=== PATIENT | male | born 1980 | race Caucasian/White ===

== ENCOUNTER 2017-06-11 08:10 | Emergency (ER) | payer BC, MEDICAID ==
[~2017-06-11] VITALS: Ht 170.2 cm; Wt 82.0 kg
[~2017-06-11 08:10] MED LIST: AMOX500C2 PO; CEPH500C PO; IBUP800T25 PO
[2017-06-11 08:11] VITALS: Ht 170.2 cm; Wt 82.0 kg
[2017-06-11] MEDS ORDERED: KETOROLAC 30 MG INJ IV STA (08:30)
[2017-06-11] MEDS ORDERED: ONDANSETRON 4 MG INJ IV STA (08:30)
[2017-06-11 08:56] LABS: BASOPHILS % 0.2 % (0.0-2.0); EOSINOPHILS # 0.1 10^3/ul (0.0-0.5); EOSINOPHILS % 0.4 % (0.0-7.0); HEMATOCRIT 46.4 % (42.0-52.0); HEMOGLOBIN 15.5 g/dl (14.0-18.0); LYMPHOCYTES # 2.4 10^3/ul (0.8-2.9); LYMPHOCYTES % 21.2 % (15.0-51.0); MEAN CORPUSCULAR HEMOGLOBIN 28.8 pg (29.0-33.0); MEAN CORPUSCULAR HGB CONC 33.4 g/dl (32.0-37.0); MEAN CORPUSCULAR VOLUME 86.1 fl (82.0-101.0); MONOCYTE # 0.8 10^3/ul (0.3-0.9); MONOCYTES % 6.9 % (0.0-11.0); NEUTROPHIL # 8.1 10^3/ul (1.6-7.5); NEUTROPHILS % 70.9 % (39.0-77.0); PLATELET COUNT 291 10^3/UL (140-415); RED BLOOD COUNT 5.39 10^6/ul (4.70-6.10); RED CELL DISTRIBUTION WIDTH 12.7 % (11.5-14.5); WHITE BLOOD COUNT 11.4 10^3/ul (4.8-10.8)
[2017-06-11 09:10] LABS: ADD UMIC NO; UR ASCORBIC ACID NEGATIVE (NEGATIVE); UR BILIRUBIN (Dip) NEGATIVE (NEGATIVE); UR BLOOD (Dip) NEGATIVE (NEGATIVE); UR CLARITY CLEAR (CLEAR); UR COLOR YELLOW (YELLOW); UR GLUCOSE (Dip) NEGATIVE (NEGATIVE); UR KETONES (Dip) NEGATIVE (NEGATIVE); UR LEUKOCYTE ESTERASE (Dip) NEGATIVE Leu/ul (NEGATIVE); UR NITRITE (Dip) NEGATIVE (NEGATIVE); UR SPECIFIC GRAVITY (Dip) 1.018 (1.003-1.030); UR TOTAL PROTEIN (Dip) NEGATIVE (NEGATIVE); UR UROBILINOGEN (Dip) NEGATIVE (NEGATIVE)
[2017-06-11 09:18] LABS: ALBUMIN 4.6 g/dl (3.3-4.9); ALBUMIN/GLOBULIN RATIO 1.15; BILIRUBIN,INDIRECT 0.9 mg/dl (0-1.1); BILIRUBIN,TOTAL 0.9 mg/dl (0.2-1.3); CALCIUM 9.7 mg/dl (8.4-10.2); CREATININE 0.89 mg/dl (0.61-1.24); POTASSIUM 4.2 mmol/L (3.5-5.1); TOTAL PROTEIN 8.6 g/dl (6.1-8.1)
--- NOTE | 2017-06-11 09:26 | RADRPT ---
PROCEDURE: Chest x-ray CLINICAL INDICATION: Flank pain TECHNIQUE: Chest single view COMPARISON: None FINDINGS: The heart is normal in size. The pulmonary vessels are normal in caliber. The lungs are clear. Th e costophrenic angles are sharp. The visualized bony thorax is unremarkable. IMPRESSION: No acute cardiopulmonary disease. RPTAT: HH .Serafin Dang MD, Date Time Electronically viewed and signed by .Serafin Dang MD, MD on 06/11/2017 09:26 .W/
--- NOTE | 2017-06-11 09:46 | RADRPT ---
PROCEDURE: CT abdomen and pelvis without contrast. CLINICAL INDICATION: Left flank pain TECHNIQUE: CT scan of the abdomen and pelvis without contrast was performed on a multislice CT [facility] utilizing axial imaging from the lung bases through the pubis symphysis. The patient was scann ed without intravenous contrast. Sagittal and coronal reformatted images were made. The CTDIvol is 11.63 mGy and the DLP is 748.91 mGycm. DICOM images are available. One of the following 3 dose reduction techniques were used during this CT examination: 1) Automated exposure control 2) Adjustment of the mA +/- kV according to patient size or 3) Use of iterative reconstruction technique COMPARISON: None available FINDINGS: The lung bases are free of infiltrates, masses or effusions. A peripheral left lower lobe 3 mm nodul e is present. The visualized heart size is normal. No pericardial effusion is present. The visualized liver, spleen, pancreas, and gallbladder are normal. No evidence for intrahepatic or extrahepatic biliary ductal dilatation is noted. The bilateral adrenal glands are normal. The bilateral kidneys demonstrate no evidence for hydrouret eronephrosis. No evidence for nephroureterolithiasis is present. The ureters are symmetric bilateral ly. The visualized aorta is normal. The visualized bowel is nonobstructive. No evidence for diverticulosis or diverticulitis is present. Postsurgical changes are noted in the pericecal region compatible with prior appendectomy changes. The visualized pelvis demonstrates a moderately distended urinary bladder with a thickened wall giulia uring 5 mm. Recommend correlation with potential cystitis. Mild prostatic enlargement is present wit h prostatic calcifications. Fatty bilateral inguinal hernias are noted measuring 1.4 cm on the right and 1.1 cm on the left. No evidence for pneumoperitoneum or ascites is present. The surrounding osseous structures are half an spondylosis of the imaged spine half. Half moderate d egenerative endplate and disc changes are present at the L5-S1 level. IMPRESSION: 1. No evidence for hydroureteronephrosis or nephroureterolithiasis. 2. Status post appendectomy changes. 3. No evidence for acute intra-abdominal or pelvic pathology. 4. Small 3 mm left lower lobe peripheral nodule RPTAT: HDC .Harper Chooljian, MD, MD Date Time Electronically viewed and signed by .Harper Garzon MD, on 06/11/2017 09:46 .C/
[2017-06-11] MEDS ORDERED: IBUP-1542 PO (09:53)
[2017-06-11] MEDS ORDERED: HYDR-906 PO (09:54)
[2017-06-11] MEDS ORDERED: ORPH100T PO (10:20)
[2017-06-11 10:27] VITALS: BP 126/75; PULSE 78; RESP 19; TEMP 98.3
--- NOTE | 2017-06-11 10:35 | ERD ---
ER Documentation Chief Complaint Chief Complaint lt flank pain since last night HPI This is a 36-year-old male presents to the ER with left-sided flank pain that started last night. Flank pain is described as sharp, constant and nonradiating. Pain is made worse whenever he moves, takes a deep breath in or touches the area. Patient does not have any fevers or chills. He denies any urinary frequency, dysuria, hematuria. He denies any nausea vomiting or diarrhea. He denies any abdominal pain. He has not had any trauma to the back. ROS 12 point review of systems was done, all negative except per HPI. Medications Home Meds Active Scripts Orphenadrine Citrate (Norflex) 100 Mg Tablet.sa, 100 MG PO BID for 7 Days, TAB.SA Prov:NAV PICHARDO 06/11/17 Hydrocodone/Acetaminophen ([place] 5-325 Tablet) 1 Each Tablet, 1 TAB PO Q6H Y for PAIN, #10 TAB Prov:NAV PICHARDO 06/11/17 Ibuprofen* (Ibuprofen*) 600 Mg Tablet, 600 MG PO Q6 for 3 Days, TAB Prov:NAV PICHARDO 06/11/17 Ibuprofen* (Motrin*) 800 Mg Tab, 800 MG PO Q6H for PAIN AND OR ELEVATED TEMP, # 30 TAB Prov:AMANDA QUEEN PA-C 10/23/15 Ibuprofen* (Motrin*) 800 Mg Tab, 800 MG PO Q6 Y for PAIN, #14 TAB Prov:AMANDA QUEENC 10/23/15 Amoxicillin* (Amoxicillin*) 500 Mg Cap, 500 MG PO BID for 10 Days, CAP Prov:AMANDA QUEEN PA-C 10/23/15 Cephalexin* (Cephalexin*) 500 Mg Capsule, 500 MG PO Q6, #28 CAP 0 Refills Prov:EZRA FERGUSON PA-C 04/30/15 Allergies Allergies: Coded Allergies: No Known Allergy (Unverified , 06/11/17) PMhx/Soc Medical and Surgical Hx: pt denies Medical Hx, pt denies Surgical Hx Hx Alcohol Use: No Hx Substance Use: No Hx Tobacco Use: No Smoking Status: Never smoker Physical Exam Vitals Vital Signs Date Time Temp Pulse Resp B/P Pulse Ox O2 Delivery O2 Flow Rate FiO2 06/11/17 10:27 98.3 78 19 126/75 100 Room Air 06/11/17 08:11 98.6 98 18 139/84 100 Physical Exam GENERAL: The patient is well developed and appropriate for usual state of health , in no apparent distress. HEENT: Atraumatic. CHEST: Clear to auscultation bilaterally. There are no rales, wheezes or rhonchi. HEART: Regular rate and rhythm. No murmurs, clicks, rubs or gallops. ABDOMEN: Soft, nontender and nondistended. Good bowel sounds. No rebound or guarding. No gross peritonitis. No gross organomegaly or masses. No May sign or McBurney point tenderness. no pulsatile masses BACK: No midline or flank tenderness. no thoracic or lumbar spine tenderness. patient is ttp along the left latissimus dorsi. there is no CVA tenderness EXTREMITIES:. No focal swelling or erythema. Full range of motion. Grossly neurovascularly intact. NEURO: Alert and oriented. Cranial nerves II through XII are intact. Motor strength in all 4 extremities with 5/5 strength. Sensation grossly intact. Normal speech and gait. SKIN: There is no apparent rash or petechia. The skin is warm and dry. Result Diagram: 06/11/17 0840 06/11/17 0840 Results 24 hrs Laboratory Tests Test 06/11/17 08:40 White Blood Count 11.410^3/ul Red Blood Count 5.3910^6/ul Hemoglobin 15.5g/dl Hematocrit 46.4% Mean Corpuscular Volume 86.1fl Mean Corpuscular Hemoglobin 28.8pg Mean Corpuscular Hemoglobin Concent 33.4g/dl Red Cell Distribution Width 12.7% Platelet Count 04598^3/UL Mean Platelet Volume 9.0fl Neutrophils % 70.9% Lymphocytes % 21.2% Monocytes % 6.9% Eosinophils % 0.4% Basophils % 0.2% Nucleated Red Blood Cells % 0.0/100WBC Neutrophils # 8.110^3/ul Lymphocytes # 2.410^3/ul Monocytes # 0.810^3/ul Eosinophils # 0.110^3/ul Basophils # 0.010^3/ul Nucleated Red Blood Cells # 0.010^3/ul Urine Color YELLOW Urine Clarity CLEAR Urine pH 7.0 Urine Specific [place] 1.018 Urine Ketones NEGATIVEmg/dL Urine Nitrite NEGATIVEmg/dL Urine Bilirubin NEGATIVEmg/dL Urine Urobilinogen NEGATIVEmg/dL Urine Leukocyte Esterase NEGATIVELeu/ul Urine Hemoglobin NEGATIVEmg/dL Urine Glucose NEGATIVEmg/dL Urine Total Protein NEGATIVEmg/dl Sodium Level 142mmol/L Potassium Level 4.2mmol/L Chloride Level 101mmol/L Carbon Dioxide Level 29mmol/L Anion Gap 16 Blood Urea Nitrogen 11mg/dl Creatinine 0.89mg/dl Glucose Level 103mg/dl Calcium Level 9.7mg/dl Total Bilirubin 0.9mg/dl Direct Bilirubin 0.00mg/dl Indirect Bilirubin 0.9mg/dl Aspartate Amino Transf (AST/SGOT) 25IU/L Alanine Aminotransferase (ALT/SGPT) 44IU/L Alkaline Phosphatase 100IU/L Total Protein 8.6g/dl Albumin 4.6g/dl Globulin 4.00g/dl Albumin/Globulin Ratio 1.15 Lipase 78U/L Current Medications Medications (Trade) Dose Ordered Sig/Lizeth Route PRN Reason Start Time Stop Time Status Last Admin Dose Admin Ondansetron HCl (Zofran Inj) 4 mg ONCE STAT IV 06/11/17 08:30 06/11/17 08:32 DC 06/11/17 08:37 Ketorolac Tromethamine (Toradol) 30 mg ONCE STAT IV 06/11/17 08:30 06/11/17 08:32 DC 06/11/17 08:38 [place] [address] Radiology Main Line: [phone] DIAGNOSTIC IMAGING REPORT Patient: MICHELLE CASTORENA : 1980 Age: 36 Sex: M MR #: [id number] DOS: 06/11/17 0830 Ordering MD: NAV PICHARDO PA-C Location: [facility] Room/Bed: PROCEDURE: CT abdomen and pelvis without contrast. CLINICAL INDICATION: Left flank pain TECHNIQUE: CT scan of the abdomen and pelvis without contrast was performed on a multislice CT scanner utilizing axial imaging from the lung bases through the pubis symphysis. The patient was scanned without intravenous contrast. Sagittal and coronal reformatted images were made. The CTDIvol is 11.63 mGy and the DLP is 748.91 mGycm. DICOM images are available. One of the following 3 dose reduction techniques were used during this CT examination: 1) Automated exposure control 2) Adjustment of the mA +/- kV according to patient size or 3) Use of iterative reconstruction technique COMPARISON: None available FINDINGS: The lung bases are free of infiltrates, masses or effusions. A peripheral left lower lobe 3 mm nodule is present. The visualized heart size is normal. No pericardial effusion is present. The visualized liver, spleen, pancreas, and gallbladder are normal. No evidence for intrahepatic or extrahepatic biliary ductal dilatation is noted. The bilateral adrenal glands are normal. The bilateral kidneys demonstrate no evidence for hydroureteronephrosis. No evidence for nephroureterolithiasis is present. The ureters are symmetric bilaterally. The visualized aorta is normal. The visualized bowel is nonobstructive. No evidence for diverticulosis or diverticulitis is present. Postsurgical changes are noted in the pericecal region compatible with prior appendectomy changes. The visualized pelvis demonstrates a moderately distended urinary bladder with a thickened wall measuring 5 mm. Recommend correlation with potential cystitis. Mild prostatic enlargement is present with prostatic calcifications. Fatty bilateral inguinal hernias are noted measuring 1.4 cm on the right and 1.1 cm on the left. No evidence for pneumoperitoneum or ascites is present. The surrounding osseous structures are half an spondylosis of the imaged spine half. Half moderate degenerative endplate and disc changes are present at the L5 -S1 level. IMPRESSION: 1. No evidence for hydroureteronephrosis or nephroureterolithiasis. 2. Status post appendectomy changes. 3. No evidence for acute intra-abdominal or pelvic pathology. 4. Small 3 mm left lower lobe peripheral nodule RPTAT: HDC .Harper Garzon MD, Date Time Electronically viewed and signed by .Harper Garzon MD, on 06/11/2017 09: 46 .C/ CC: NAV PICHARDO [place] [address] Radiology Main Line: [phone] DIAGNOSTIC IMAGING REPORT Patient: MICHELLE CASTORENA : 1980 Age: 36 Sex: M MR #: [id number] DOS: 06/11/17829 Ordering MD: NAV PICHARDO PA-C Location: [facility] Room/Bed: PROCEDURE: Chest x-ray CLINICAL INDICATION: Flank pain TECHNIQUE: Chest single view COMPARISON: None FINDINGS: The heart is normal in size. The pulmonary vessels are normal in caliber. The lungs are clear. The costophrenic angles are sharp. The visualized bony thorax is unremarkable. IMPRESSION: No acute cardiopulmonary disease. RPTAT: HH .Serafin Dang MD, MD Date Time Electronically viewed and signed by .Serafin Dang MD, MD on 06/11/2017 09:26 .W/ CC: NAV PICHARDO Procedures/MDM This is a 36-year-old male presents to the ER with left-sided flank pain, at this time there is no evidence of nephrolithiasis, obstructive stone, septic stone, UTI, pyelonephritis. Suspicion for acute abdomen is low. Patient does not have any abdominal pain in his examination is completely benign. There is no history of trauma I doubt cauda equina, fracture, dislocation. He is afebrile and extremely well-appearing. This may be related to muscle spasms, patient was ttp over the latissimus dorsi muscle and pain is worse with movement. He Will be sent home with [place], ibuprofen, Norflex. He is to follow- up with his primary care doctor within 1-2 days return to ER sooner if symptoms worsen. My medical decision making shared with the patient he understands and agrees with plan. Departure Diagnosis: Primary Impression: Flank pain Condition: Stable Patient Instructions: Flank Pain, Uncertain Cause Referrals: CHELO TUCKER MD (PCP) Additional Instructions: Call your primary care doctor TOMORROW for an appointment during the next 1-2 days.See the doctor sooner or return here if your condition worsens before your appointment time. NAV PICHARDO Jun 11, 2017 10:35
== END 2017-06-11 10:35 | disposition home or self-care (01) ==
LOC: FTE 08:10
DX: R10.9 Unspecified abdominal pain (principal)
CPT/HCPCS: 36415; 71010; 74176; 80053; 81003; 83690; 85025; 96374; 96375; 99285; J1885; J2405

== ENCOUNTER 2017-07-08 13:39 | Emergency (ER) | END 2017-07-08 17:20 | disposition home or self-care (01) ==

== ENCOUNTER 2017-12-14 12:17 | Emergency (ER) | END 2017-12-14 14:00 | disposition home or self-care (01) ==

== ENCOUNTER 2018-12-18 18:54 | Emergency (ER) | payer BC ==
[~2018-12-18] VITALS: Ht 167.6 cm; Wt 81.2 kg
[~2018-12-18 18:54] MED LIST changes: +HYDR-4011 PO; +IBUP-1542 PO; -IBUP800T25 PO; +IBUP800T48 PO; +NAPR-688 PO; +ORPH100T PO
[2018-12-18 19:03] VITALS: Ht 167.6 cm; Wt 81.2 kg
[2018-12-18] MEDS ORDERED: ONDANSETRON 4 MG INJ IV STA (20:11)
[2018-12-18] MEDS ORDERED: SOD CHLORIDE 0.9% 1,000 ML IV STA (20:11)
[2018-12-18] MEDS ORDERED: ACETAMINOPHEN 500 MG TAB PO STA (20:11)
[2018-12-18] MEDS ORDERED: IBUP-1542 PO (21:58)
--- NOTE | 2018-12-18 22:03 | ERD ---
ER Documentation Chief Complaint Chief Complaint LEFT FLANK PAIN X 6 DAYS HPI Patient is a 38-year-old male, past surgical history of appendectomy, presents the ER for concerns of left-sided flank pain for the last 6 days. Patient also reports bloating. He states that he has had changes in his stools. He states that he has had order stools. Patient denies any frequency, urgency, hematuria or dysuria. Patient denies fevers or chills. Patient denies any diarrhea or rectal bleeding. Patient denies any nausea, vomiting, chest pain, shortness of breath or LOC. No recent travel. No sick contacts. ROS All systems reviewed and are negative except as per history of present illness. Medications Home Meds Active Scripts Ibuprofen* (Motrin*) 600 Mg Tab, 600 MG PO Q6, #30 TAB Prov:SONIA SIDHU PA-C 12/18/18 Ibuprofen* (Motrin*) 600 Mg Tab, 600 MG PO Q6, #30 TAB Prov:CASSIE CHAVEZ MD 12/14/17 Naproxen* (Naproxen*) 500 Mg Tablet, 500 MG PO BID PRN for PAIN, #20 TAB Prov:RACHAEL MASCORRO DO 07/08/17 Hydrocodone/Acetaminophen ([place] 5-325 Tablet) 1 Each Tablet, 1 EACH PO Q6, #20 TAB no driving with use Prov:SUBHARACHAEL DO 07/08/17 Orphenadrine Citrate (Norflex) 100 Mg Tablet.sa, 100 MG PO BID for 7 Days, TAB.SA Prov:NAV PICHARDO 06/11/17 Hydrocodone/Acetaminophen ([place] 5-325 Tablet) 1 Each Tablet, 1 TAB PO Q6H PRN for PAIN, #10 TAB Prov:NAV PICHARDO 06/11/17 Ibuprofen* (Ibuprofen*) 600 Mg Tablet, 600 MG PO Q6 for 3 Days, TAB Prov:NAV PICHARDO 06/11/17 Ibuprofen* (Motrin*) 800 Mg Tab, 800 MG PO Q6H for PAIN AND OR ELEVATED TEMP, #30 TAB Prov:AMANDA QUEEN PA-C 10/23/15 Ibuprofen* (Motrin*) 800 Mg Tab, 800 MG PO Q6 PRN for PAIN, #14 TAB Prov:AMANDA QUEEN PA-C 10/23/15 Amoxicillin* (Amoxicillin*) 500 Mg Cap, 500 MG PO BID for 10 Days, CAP Prov:AMANDA QUEENPapito VARELA 10/23/15 Cephalexin* (Cephalexin*) 500 Mg Capsule, 500 MG PO Q6, #28 CAP 0 Refills Prov:EZRA FERGUSON AVERY 04/30/15 Allergies Allergies: Coded Allergies: No Known Allergy (Unverified , 12/14/17) PMhx/Soc History of Surgery: Yes (APPY ) Anesthesia Reaction: No Hx Neurological Disorder: No Hx Respiratory Disorders: No Hx Cardiac Disorders: No Hx Psychiatric Problems: No Hx Miscellaneous Medical Probl: Yes (HEMORRHOIDS ) Hx Alcohol Use: No Hx Substance Use: No Hx Tobacco Use: No FmHx Family History: No diabetes Physical Exam Vitals Vital Signs Date Temp Pulse Resp B/P (MAP) Pulse Ox O2 O2 Flow FiO2 Time Delivery Rate 12/18/18 98.3 96 16 133/92 98 19:03 (106) Physical Exam GENERAL: Well-developed, well-nourished male. Appears in no acute distress. HEAD: Normocephalic, atraumatic. No deformities or ecchymosis. EYE: Pupils equal, round, and reactive to light. EOMs intact. No conjunctival erythema. No eye discharge. NECK: Supple. No meningismus. Normal ROM of the neck. LUNG: Clear to auscultation bilaterally. No rhonchi, wheezing, rales or coarse breath sounds. HEART: Regular rate and rhythm. No murmurs, rubs or gallops. ABDOMEN: Tender to palpation of bilateral lower quadrants. Soft nondistended. Positive bowel sounds in all four quadrants. No rebound tenderness, no guarding. (-) McBurney's point tenderness. No CVA tenderness. EXTREMITES: Equal pulses bilaterally. No peripheral clubbing, cyanosis or edema. No unilateral leg swelling. NEUROLOGIC: Alert and oriented to person, place and time. Moving all four extremities. 5/5 strength in all extremities. Normal speech. Steady gait. SKIN: Normal color. Warm and dry. No rashes or lesions. Result Diagram: 12/18/18201812/18/182018 Results 24 hrs Laboratory Tests Test 12/18/18 20:19 White Blood Count 7.9 10^3/ul Red Blood Count 5.17 10^6/ul Hemoglobin 14.7 g/dl Hematocrit 44.9 % Mean Corpuscular Volume 86.8 fl Mean Corpuscular Hemoglobin 28.4 pg Mean Corpuscular Hemoglobin Concent 32.7 g/dl Red Cell Distribution Width 13.2 % Platelet Count 278 10^3/UL Mean Platelet Volume 9.4 fl Immature Granulocytes % 0.300 % Neutrophils % 44.1 % Lymphocytes % 47.0 % Monocytes % 7.1 % Eosinophils % 1.0 % Basophils % 0.5 % Nucleated Red Blood Cells % 0.0 /100WBC Immature Granulocytes # 0.020 10^3/ul Neutrophils # 3.5 10^3/ul Lymphocytes # 3.7 10^3/ul Monocytes # 0.6 10^3/ul Eosinophils # 0.1 10^3/ul Basophils # 0.0 10^3/ul Nucleated Red Blood Cells # 0.0 10^3/ul Urine Color YELLOW Urine Clarity CLEAR Urine pH 6.0 Urine Specific Campus 1.018 Urine Ketones NEGATIVE mg/dL Urine Nitrite NEGATIVE mg/dL Urine Bilirubin NEGATIVE mg/dL Urine Urobilinogen NEGATIVE mg/dL Urine Leukocyte Esterase NEGATIVE Nga/ul Urine Hemoglobin NEGATIVE mg/dL Urine Glucose NEGATIVE mg/dL Urine Total Protein NEGATIVE mg/dl Sodium Level 141 mmol/L Potassium Level 3.7 mmol/L Chloride Level 103 mmol/L Carbon Dioxide Level 27 mmol/L Anion Gap 11 Blood Urea Nitrogen 16 mg/dl Creatinine 0.86 mg/dl Est Glomerular Filtrat Rate mL/min > 60 mL/min Glucose Level 99 mg/dl Calcium Level 9.1 mg/dl Total Bilirubin 0.7 mg/dl Direct Bilirubin 0.00 mg/dl Indirect Bilirubin 0.7 mg/dl Aspartate Amino Transf (AST/SGOT) 29 IU/L Alanine Aminotransferase (ALT/SGPT) 31 IU/L Alkaline Phosphatase 90 IU/L Total Protein 8.7 g/dl Albumin 4.6 g/dl Globulin 4.10 g/dl Albumin/Globulin Ratio 1.12 Lipase 118 U/L Current Medications Medications Dose Sig/Lizeth Start Time Status Last (Trade) Ordered Route PRN Stop Time Admin Dose Reason Admin Sodium 1,000 ml @ Q1H STAT 12/18/18 DC 12/18/18 Chloride 1,000 mls/hr IV 20:11 20:35 6/27/19 21:10 Ondansetron 4 mg ONCE STAT 12/18/18 DC 12/18/18 HCl (Zofran IV 20:11 20:35 Inj) 12/18/18 20:13 1,000 mg ONCE STAT 12/18/18 DC 12/18/18 Acetaminophen PO 20:11 20:36 (Tylenol 12/18/18 20:13 Tab) Procedures/MDM ED COURSE: The patient was stable throughout ED course. I kept the patient and/or family informed of laboratory and diagnostic imaging results throughout the ED course. DIAGNOSTIC IMAGING: Read by radiologist. Patient: MICHELLE CASTORENA : 1980 Age: 38 Sex: M MR #: [id number] DOS: 12/18/182010 Ordering MD: SONIA SIDHU PA-C Location: [facility] Room/Bed: PROCEDURE: CT abdomen and pelvis without contrast. CLINICAL INDICATION: Abdominal Pain TECHNIQUE: CT scan of the abdomen and pelvis without oral contrast was performed and is reconstructed at 2.5 mm contiguous axial intervals from the dome of the diaphragm to the inferior pubic rami.. The patient was scanned without intravenous contrast. Sagittal and coronal reformatted images were obtained from the axial source images. The calculated radiation dose measures 690 mGy centimeters. The CTDI measures 11 mGy. Individualized dose optimization technique was used for the performance of this exam. This included 1. Automated exposure control. 2. Adjustment of the mA and / or kV according to the patient's size. 3. Use of iterative reconstructed technique. DICOM images are available. COMPARISON: CT abdomen pelvis June 11, 2017. FINDINGS: The lung bases are clear of any infiltrate or nodule. No effusion is seen. The liver is of normal size, contour and attenuation with no mass or ductal dilatation. No gallstones are visualized. No splenic, adrenal or pancreatic a bnormalities present. Kidneys are of normal size and contour. No hydronephrosis, calculus or mass Is seen. Ureters are of normal course and caliber with no stone. No bladder mass or stone is present. Prostate and seminal vesicles appear normal. There is no aneurysm. No adenopathy is present. No bowel mass or obstruction is present. There are surgical suture in the wall of the right colon. The appendix has been removed.. No phlegmon, ascites or pneumoperitoneum is visualized. The osseous structures are intact. IMPRESSION: No evidence of urolithiasis, obstructive uropathy or diverticulitis. Post appendectomy. .Javy Dumont MD, Date Time Electronically viewed and signed by .Javy Dumont MD, MD on 12/18/2018 21:01 .A/ CC: SONIA SIDHU PA-C [id number] PROCEDURES: None. This is a 38-year-old male presents to the ER for concerns of left-sided flank pain along with bloating and changes in his stool x6 days. Vital signs were reviewed. Patient is afebrile. Work is obtained. CBC showed no evidence of systemic infection or severe anemia. CMP showed no evidence of electrolyte abnormalities, severe acidosis, alkalosis, renal failure, or liver disease. Lipase showed no evidence of acute pancreatitis. UA showed no evidence of acute infection or hematuria. CT abdomen and pelvis were unremarkable. See formal report above. On reexamination, patient had improvement in symptoms. At this time for the patient's presentation is most consistent with flank pain and stool changes. Patient was advised to follow-up with a GI specialist for further management of his stool changes. Differential diagnosis included but was not limited to acute coronary syndrome, AAA, mesenteric ischemia, lower lobe pneumonia, DKA, bowel perforation, cholecystitis, choledocholithiasis, ascending cholangitis, hepatic abscess, pancreatitis, PUD, gastritis, GERD, splenic rupture, diverticulitis, UTI, pyelonephritis, nephrolithiasis, appendicitis, constipation, testicular torsion, epididymitis, urethritis, or prostatitis. He was nontoxic, [id number] prior to discharge. PRESCRIPTIONS: Ibuprofen DISCHARGE: At this time, patient is stable for discharge and outpatient management. I have instructed the patient to follow-up with his/her primary care physician in 1-2 days. I have instructed the patient to promptly return to the ER at any time for any new or worsening symptoms including increased pain, nausea, vomiting, diarrhea, fever, weakness or LOC. The patient and/or family expressed understanding of and agreement with this plan. All questions were answered. Home care instructions were provided. Disclaimer: Inadvertent spelling and grammatical errors are likely due to EHR/dictation software use and do not reflect on the overall quality of patient care. Also, please note that the electronic time recorded on this note does not necessarily reflect the actual time of the patient encounter. Departure Diagnosis: Primary Impression: Flank pain Additional Impressions: Change in bowel movement Bloating Condition: Fair Patient Instructions: Flank Pain, Uncertain Cause Referrals: GIN DASH MD, NAGARAJ M MD CHITAYAT,ERVIN VELAZQUEZ,BELLO HEADLEY,IGNACIO LICONA,JAVY HAYNES,JUDAH ARCOS,RADHA JARAMILLO [facility] YOU HAVE RECEIVED A MEDICAL SCREENING EXAM AND THE RESULTS INDICATE THAT YOU DO NOT HAVE A CONDITION THAT REQUIRES URGENT TREATMENT IN THE EMERGENCY DEPARTMENT. FURTHER EVALUATION AND TREATMENT OF YOUR CONDITION CAN WAIT UNTIL YOU ARE SEEN IN YOUR DOCTORS OFFICE WITHIN THE NEXT 1-2 DAYS. IT IS YOUR RESPONSIBILITY TO MAKE AN APPOINTMENT FOR FOLOW-UP CARE. IF YOU HAVE A PRIMARY DOCTOR --you should call your primary doctor and schedule an appointment IF YOU DO NOT HAVE A PRIMARY DOCTOR YOU CAN CALL OUR PHYSICIAN REFERRAL HOTLINE AT IF YOU CAN NOT AFFORD TO SEE A PHYSICIAN YOU CAN CHOSE FROM THE FOLLOWING [facility] [address] [facility]. [facility] [address] [facility]. [facility] [address] [facility]. [facility] [address] [facility]. [facility] [address] [facility]. [facility] [address] [facility] YOU HAVE RECEIVED A MEDICAL SCREENING EXAM AND THE RESULTS INDICATE THAT YOU DO NOT HAVE A CONDITION THAT REQUIRES URGENT TREATMENT IN THE EMERGENCY DEPARTMENT. FURTHER EVALUATION AND TREATMENT OF YOUR CONDITION CAN WAIT UNTIL YOU ARE SEEN IN YOUR DOCTORS OFFICE WITHIN THE NEXT 1-2 DAYS. IT IS YOUR RESPONSIBILITY TO MAKE AN APPOINTMENT FOR FOLOW-UP CARE. IF YOU HAVE A PRIMARY DOCTOR --you should call your primary doctor and schedule and appointment IF YOU DO NOT HAVE A PRIMARY DOCTOR YOU CAN CALL OUR PHYSICIAN REFERRAL HOTLINE AT . IF YOU CAN NOT AFFORD TO SEE A PHYSICIAN YOU CAN CHOSE FROM THE FOLLOWING [facility] INSTITUTIONS: [facility] [address] [place] [address] [facility] [address] [place] [address] [facility] [address] [place] [address] Additional Instructions: Follow-up with a GI specialist for further management of your symptoms. Call your primary care doctor TOMORROW for an appointment during the next 1-2 days.See the doctor sooner or return here if your condition worsens before your appointment time. SONIA SIDHU PA-C Dec 18, 2018 22:03
[2018-12-18 22:11] VITALS: BP 118/77; PULSE 75; RESP 17
== END 2018-12-18 22:11 | disposition home or self-care (01) ==
LOC: FTE 18:54
DX: R10.9 Unspecified abdominal pain (principal); R14.0 Abdominal distension (gaseous); R19.4 Change in bowel habit
CPT/HCPCS: 36415; 74176; 80053; 81003; 83690; 85025; 96374; 99285; J2405; J7030; Z7610